=== PATIENT | female | born 1980 | race Caucasian/White ===

== ENCOUNTER 2025-01-05 15:27 | Emergency (ER) | payer BC, SELFPAY ==
[2025-01-05 15:33] VITALS: BP 123/83; PULSE 110; TEMP 36.9; O2SAT 100; BMI 28.2
[2025-01-05 17:01] VITALS: BP 122/78; O2SAT 98
--- NOTE | 2025-01-05 17:26 | ED_ITS ---
HPI HPI - General Adult General Chief complaint: Nausea/Vomiting/Diarrhea Stated complaint: NAUSEA, VOMITING Time Seen by Provider: 01/05/25 17:18 Source: patient Mode of arrival: walk-in History of Present Illness HPI narrative: 44-year-old female presents for nausea and vomiting and some abdominal pain. She states this time she has been like this for 3 weeks. No hematemesis or blood in her stool. She states she has had intestinal issues since last summer and she has been seeing a GI specialist. She states she had upper and lower endoscopy and no cause was found. The pain is mild to moderate Related Data Home Medications ?Medication ?Instructions ?Recorded ?Confirmed alprazolam 1 mg tablet 1 mg PO TID PRN anxiety 01/05/25 01/05/25 metoclopramide HCl 10 mg tablet 10 mg PO TID 01/05/25 01/05/25 tizanidine 4 mg tablet 4 mg PO TID PRN muscle spasticity 01/05/25 01/05/25 Allergies Allergy/AdvReac Type Severity Reaction Status Date / Time amoxicillin (From Augmentin) AdvReac Severe Abdominal Verified 01/05/25 17:02 Pain clavulanic acid (From AdvReac Severe Abdominal Verified 01/05/25 17:02 Augmentin) Pain Opioid HPI Opioid Management Most Recent Opioid Data: No Data to Display Review of Systems ROS Narrative A ten point review of systems is negative except as noted above. PFSH PFSH Social History Little interest or pleasure in doing things: not at all Feeling down, depressed, or hopeless: not at all Exam Narrative Exam Narrative: Nurses note and vital signs reviewed and patient is not hypoxic. General: The patient appears in no apparent distress. She is laying on her right side. Skin: Warm, dry, no pallor noted. There is no rash noted. Head: Normocephalic, atraumatic Eye: Normal conjunctiva, no drainage Ears, Nose, Mouth, and Throat: oral mucosa is moist. Nares patent. Cardiovascular: Regular Rate and Rhythm Respiratory: Patient is in no distress, no accessory muscle use, lungs are clear to auscultation, no wheezing, rales or rhonchi Back: non-tender GI: Soft and nondistended. Mild diffuse tenderness present. No masses or distention Musculoskeletal: The patient has no evidence of calf tenderness, no pitting edema, symmetrical pulses noted bilaterally Neurological: A&O, normal speech Psychiatric: Cooperative Constitutional Vital Signs, click to edit/add: Last Vital Signs Temp 98.5 F 01/05/25 15:33 Pulse 110 H 01/05/25 15:33 Resp 20 01/05/25 17:01 BP 122/78 01/05/25 17:01 Pulse Ox 98 01/05/25 17:01 O2 Del Method Room Air 01/05/25 17:01 Course Vital Signs Vital signs: Vital Signs Temperature 98.5 F 01/05/25 15:33 Pulse Rate 110 H 01/05/25 15:33 Respiratory Rate 18 01/05/25 15:33 Blood Pressure 123/83 01/05/25 15:33 Pulse Oximetry 100 01/05/25 15:33 Oxygen Delivery Method Room Air 01/05/25 15:33 Temperature 98.5 F 01/05/25 15:33 Pulse Rate 110 H 01/05/25 15:33 Respiratory Rate 20 01/05/25 17:01 Blood Pressure 122/78 01/05/25 17:01 Pulse Oximetry 98 01/05/25 17:01 Oxygen Delivery Method Room Air 01/05/25 17:01 Medical Decision Making MDM Narrative Medical decision making narrative: Blood work is nonspecific, WBC is 13,000. CT scan is pending and the patient is signed out to Dr. Lancaster at change of shift. Differential Diagnosis Differential Diagnosis: Gastroenteritis, chronic abdominal pain, pancreatitis, small bowel obstruct Lab Data Lab results reviewed: Yes I reviewed the patient's lab results Labs: Lab Results 01/05/25 Range/Units 17:50 WBC 13.0 H (4.0-11.0) 10^3/uL RBC 3.49 L (4.20-5.40) 10^6/uL Hgb 12.9 (12.0-16.0) g/dL Hct 36.6 (36.0-48.0) % MCV 104.9 H (81.0-99.0) fL MCH 37.0 H (26.7-34.0) pg MCHC 35.2 (29.9-35.2) g/dL RDW 15.0 (11.0-15.0) % Plt Count 640 H (150-450) 10^3/uL MPV 9.5 (9.5-13.5) fL Neut % (Auto) 72.8 (43.0-75.0) % Lymph % (Auto) 21.6 (20.5-60.0) % [place] % (Auto) 4.2 (1.7-12.0) % Eos % (Auto) 0.6 L (0.9-7.0) % Baso % (Auto) 0.5 (0.2-2.0) % Neut # (Auto) 9.4 H (1.4-6.5) 10^3/uL Lymph # (Auto) 2.8 (1.2-3.8) 10^3/uL [place] # (Auto) 0.6 (0.3-0.8) 10^3/uL Eos # (Auto) 0.1 (0.0-0.7) 10^3/uL Baso # (Auto) 0.1 (0.0-0.1) 10^3/uL Abs Immat Gran (auto) 0.04 H (0.00-0.03) 10^3/uL Imm/Tot Granulo (auto) 0.3 (0.0-0.5) % Sodium 141 (136-145) mmol/L Potassium 3.3 L (3.5-5.1) mmol/L Chloride 98 (98-107) mmol/L Carbon Dioxide 29.3 (21.0-32.0) mmol/L Anion Gap 17.0 BUN 3.0 L (7.0-18.0) mg/dL Creatinine 0.73 (0.55-1.02) mg/dL Est GFR ( Amer) >60 (>=60 mL/min/1.73m^2) Est GFR (Non-Af Amer) >60 (>=60 mL/min/1.73m^2) BUN/Creatinine Ratio 4.1 Glucose 90 (74-106) mg/dL Calcium 8.6 (8.5-10.1) mg/dL Total Bilirubin 0.7 (0.2-1.0) mg/dL Direct Bilirubin 0.3 H (0.0-0.2) mg/dL AST 104 H (15-37) U/L ALT 38 (14-59) U/L Alkaline Phosphatase 284 H (46-116) U/L Total Protein 6.6 (6.4-8.2) g/dL Albumin 2.3 L (3.4-5.0) g/dL Globulin 4.3 g/dL Albumin/Globulin Ratio 0.5 Amylase 52 (25-115) U/L Lipase 13.0 L (16.0-77.0) U/L Discharge Plan Discharge Patient Disposition: Still a Patient
[2025-01-05 18:09] LABS: Basophils Absolute Auto 0.1 10^3/uL (0.0-0.1); Basophils Percent Auto 0.5 % (0.2-2.0); Eosinophils Absolute Auto 0.1 10^3/uL (0.0-0.7); Eosinophils Percent Auto 0.6 % (0.9-7.0); Hematocrit 36.6 % (36.0-48.0); Hemoglobin 12.9 g/dL (12.0-16.0); Immature Granulocytes Abs Auto 0.04 10^3/uL (0.00-0.03); Immature Granulocytes Pct Auto 0.3 % (0.0-0.5); Lymphocytes Absolute Auto 2.8 10^3/uL (1.2-3.8); Lymphocytes Percent Auto 21.6 % (20.5-60.0); Mean Corpuscular HGB Conc 35.2 g/dL (29.9-35.2); Mean Corpuscular Volume 104.9 fL (81.0-99.0); Mean Platelet Volume 9.5 fL (9.5-13.5); Monocytes Absolute Auto 0.6 10^3/uL (0.3-0.8); Monocytes Percent Auto 4.2 % (1.7-12.0); Neutrophils Absolute Auto 9.4 10^3/uL (1.4-6.5); Neutrophils Percent Auto 72.8 % (43.0-75.0); Platelet Count 640 10^3/uL (150-450); Red Blood Count 3.49 10^6/uL (4.20-5.40)
[2025-01-05] MEDS: ONDANSETRON PF 4 MG/2 ML VIAL IV (18:10)
[2025-01-05] MEDS: 0.9 % SODIUM CHLORIDE 1,000 ML 1000 ML IV (18:10)
[2025-01-05 18:19] LABS: Alanine Aminotransferase 38 U/L (14-59); Albumin Globulin Ratio 0.5; Albumin Level 2.3 g/dL (3.4-5.0); Alkaline Phosphatase 284 U/L (46-116); Amylase 52 U/L (25-115); Aspartate Amino Transferase 104 U/L (15-37); BUN Creatinine Ratio 4.1; Bilirubin Direct 0.3 mg/dL (0.0-0.2); Bilirubin Total 0.7 mg/dL (0.2-1.0); Calcium 8.6 mg/dL (8.5-10.1); Carbon Dioxide 29.3 mmol/L (21.0-32.0); Chloride 98 mmol/L (98-107); Estimated GFR (African America >60 (>=60 mL/min/1.73m^2); Estimated GFR (Non-African Ame >60 (>=60 mL/min/1.73m^2); Globulin 4.3 g/dL; Glucose 90 mg/dL (74-106); Potassium 3.3 mmol/L (3.5-5.1); Sodium 141 mmol/L (136-145); Total Protein 6.6 g/dL (6.4-8.2)
[2025-01-05 19:33] LABS: Bilirubin Urine NEGATIVE (NEGATIVE); Blood Urine NEGATIVE (NEGATIVE); Clarity Urine CLEAR (CLEAR); Color Urine LT. YELLOW (YELLOW); Glucose Urine UA NEGATIVE (NEGATIVE); Ketones Urine NEGATIVE (NEGATIVE); Leukocyte Esterase Urine NEGATIVE (NEGATIVE); Nitrite Urine NEGATIVE (NEGATIVE); Protein Urine NEGATIVE (NEG/TRACE); Specific Gravity Urine <=1.005 (1.005-1.025); Urobilinogen Urine 0.2 EU/dL (0.2-1.0)
[2025-01-05 19:43] LABS: Bacteria Urine TRACE #/HPF (NONE SEEN); Cast Seen? NONE SEEN #/LPF (NONE SEEN); Crystals Seen? None Seen #/HPF (None Seen); Mucus Urine NONE SEEN (NONE SEEN); RBC Urine 0-2 #/HPF (0-2); Squamous Epithelial Cell Urine FEW #/LPF (NONE/RARE); Urine Culture Indicated NO; WBC Urine NONE SEEN #/HPF (NONE SEEN)
== END 2025-01-05 20:41 | disposition home or self-care (01) ==
PROVIDERS: Emergency Medicine; Emergency Provider Emergency Medicine; PCP Family Medicine
DX: R11.2 Nausea with vomiting, unspecified (principal); R10.9 Unspecified abdominal pain; N83.202 Unspecified ovarian cyst, left side; N20.0 Calculus of kidney; K76.0 Fatty (change of) liver, not elsewhere classified; Z90.49 Acquired absence of other specified parts of digestive tract; N83.201 Unspecified ovarian cyst, right side
CPT/HCPCS: 36415; 74177; 80048; 80076; 81001; 82150; 83690; 85025; 96361; 96374; 99285; J2405; Q9967